=== PATIENT | male | born 1985 | race Caucasian/White ===

== ENCOUNTER 2017-01-16 04:13 | Emergency (ER) | payer SELFPAY ==
[~2017-01-16 04:13] MED LIST: ASPI325T11 PO; CALC-104 PO; MAGN296S9 PO; OXYC-323 PO
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
[2017-01-16] MEDS ORDERED: NAPR500T PO (04:41)
[2017-01-16] MEDS ORDERED: TRAM50TA PO (04:41)
[2017-01-16] MEDS ORDERED: KETOROLAC 60 MG/2 ML INJ. IM ONE (05:00)
[2017-01-16 05:29] VITALS: BP 108/58
--- NOTE | 2017-01-16 08:00 | RAD ---
Chest radiograph 01/16/2017 6:18 AM Indication: Left rib pain after a solid Comparison: None available Technique: Single portable upright frontal view of the chest is provided. Findings: Cardiomediastinal silhouette is within normal limits. No pleural effusions, pulmonary vascular congestion or pneumothorax. The lungs are clear. 4 mm calcified granuloma is identified in the left lower lobe. Osseous structures are normal. Impression: No acute cardiopulmonary process.
== END 2017-01-16 05:30 | disposition home or self-care (01) ==
LOC: ER 04:13
DX: S20.212A Contusion of left front wall of thorax, initial encounter (principal); F17.210 Nicotine dependence, cigarettes, uncomplicated; Y08.89XA Assault by other specified means, initial encounter; Y93.89 Activity, other specified; Y92.89 Other specified places as the place of occurrence of the external cause; Y99.8 Other external cause status
CPT/HCPCS: 71010; 96372; 99283; J1885

== ENCOUNTER 2017-11-09 22:20 | Emergency (ER) | payer SELFPAY | END 2017-11-09 23:25 | disposition home or self-care (01) | LOC: ER 22:20 | DX: S00.83XA Contusion of other part of head, initial encounter (principal); S16.1XXA Strain of muscle, fascia and tendon at neck level, initial encounter; V49.9XXA Car occupant (driver) (passenger) injured in unspecified traffic accident, initial encounter; Y93.89 Activity, other specified; Y92.488 Other paved roadways as the place of occurrence of the external cause; Y99.8 Other external cause status | CPT/HCPCS: 99283 ==